=== PATIENT | female | born 1945 | race Caucasian/White ===

== ENCOUNTER → 2019-08-11 15:30 | Outpatient (CLI) | payer MEDICARE, SELFPAY ==
[2019-08-11 18:20] LABS: Thyroid Stimulating Hormone 1.49 uIU/mL (0.47-4.68)
== END ==
PROVIDERS: Family Provider Internal Medicine; PCP Internal Medicine; Visit Provider Hospitalist
DX: I48.91 Unspecified atrial fibrillation (principal)
CPT/HCPCS: 36415; 84443

== ENCOUNTER → 2019-08-31 15:49 | Outpatient (CLI) | payer MEDICARE, SELFPAY ==
--- NOTE | 2019-08-31 | DI.ECHO.S_ITS ---
[facility] +---------+ : : [address] : : : : [id number] : : : : Phone: [phone]+ Echocardiogram Report + + :Name: PARAG REYNOLDS Study Date: 08/31/2019 Height: 69 in : :[facility] Weight: 234 lb : : Gender: Female BSA: 2.2 m2 : :: 1945 Age: 74 yrs BP: 142/82 mmHg: :Reason For Study: Mitral Valve- Regurgitation : : Performed By: [facility] Staff : :Referring: HEIDI FELDMAN : + + Interpretation Summary The left ventricular ejection fraction is normal. There are no focal wall motion abnormalities. The right ventricle is normal in size and function. The left atrium is moderately dilated. There is moderate mitral regurgitation. There is moderate tricuspid regurgitation. The right ventricular systolic pressure is estimated to be at least 36 mmHg based on an estimated right atrial pressure of 3 mm Hg. There is no prior echocardiogram noted for this patient. Procedure: A two-dimensional transthoracic echocardiogram with color flow and Doppler was performed. The study quality was technically adequate. There is no prior echocardiogram noted for this patient. The patient was in atrial fibrillation with heart rates between 88-125 bpm during the exam. Left Ventricle: The left ventricle is normal in size. There is normal left ventricular wall thickness. The ejection fraction is estimated to be 50-55%. The left ventricular ejection fraction is normal. There are no focal wall motion abnormalities. Diastolic function could not be accurately assessed due to atrial fibrillation. Right Ventricle: The right ventricle is normal in size and function. Atria: The left atrium is moderately dilated. The right atrium is mildly dilated. There is no Doppler evidence for an interatrial shunt. Mitral Valve: The mitral valve is normal in structure and function. There is moderate mitral regurgitation. Aortic Valve: The aortic valve is trileaflet. The aortic valve opens well. There is trace aortic regurgitation. Tricuspid Valve: The tricuspid valve is normal in structure and function. There is moderate tricuspid regurgitation. The right ventricular systolic pressure is estimated to be at least 36 mmHg based on an estimated right atrial pressure of 3 mm Hg. Pulmonic Valve: The pulmonic valve is not well visualized. There is trace pulmonic regurgitation. Great Vessels: The aortic root is normal size. The ascending aorta could not be visualized. The pulmonary artery is normal size. The IVC is of normal diameter and collapses greater than 50% with a sniff. This suggests a low right atrial pressure of 3 mm Hg. Pericardium/ Pleura There is no pericardial effusion. There is no pleural effusion. MMode/2D Measurements & Calculations LVIDd: 4.2 cm LVOT diam: 2.0 cm LVIDs: 3.2 cm Ao root diam: 2.6 cm FS: 23.1 % EPSS: 0.73 cm IVSd: 1.1 cm LVPWd: 0.99 cm LV sorenson. diameter/BSA (cm/m^2): 1.9 LV sys. diameter/BSA (cm/m^2): 1.5 LA A2 area: 22.3 cm2 RA long axis: 5.5 cm LA A4 area: 23.9 cm2 RA area: 20.3 cm2 LA length (vol): 6.0 cm RA vol: 63.4 ml LA vol: 75.4 ml RA : 28.7 ml/m2 LA vol index: 34.2 ml/m2 TAPSE: 1.8 cm LVAd ap4: 26.2 cm2 LVAs ap4: 17.2 cm2 LVLs ap4: 6.7 cm Doppler Measurements & Calculations Ao V2 max: 111.8 cm/sec TR max amparo: 249.2 cm/sec Ao V2 mean: 80.3 cm/sec TR max P.2 mmHg Ao max P.0 mmHg Ao mean P.9 mmHg Ao V2 VTI: 21.2 cm Electronically signed by: Heidi Feldman M.D. on Reading Physician:09/02/2019 07:31 PM
== END ==
PROVIDERS: Family Provider Internal Medicine; PCP Internal Medicine; Visit Provider Hospitalist
DX: I08.1 Rheumatic disorders of both mitral and tricuspid valves (principal); I48.91 Unspecified atrial fibrillation
CPT/HCPCS: 93306

== ENCOUNTER → 2019-11-14 10:02 | Outpatient (CLI) | payer MEDICARE, SELFPAY ==
[2019-11-14 11:51] LABS: Blood Urea Nitrogen 16 mg/dL (7-17); Calcium 10.3 mg/dL (8.4-10.2); Carbon Dioxide 27 mmol/L (22-32); Chloride 99 mmol/L (98-107); Estimated Glomerular Filt Rate > 60.0 mL/min (>60); Glucose 131 mg/dL (80-110); HEMOLYSIS < 15 (0-50); Sodium 138 mmol/L (137-145)
[2019-11-14 11:52] LABS: Potassium 5.4 mmol/L (3.4-5.1)
== END ==
PROVIDERS: Family Provider Internal Medicine; PCP Internal Medicine; Referring Provider Hospitalist; Visit Provider Hospitalist
DX: I50.42 Chronic combined systolic (congestive) and diastolic (congestive) heart failure (principal)
CPT/HCPCS: 36415; 80048

== ENCOUNTER → 2020-03-11 11:05 | Outpatient (CLI) | payer MEDICARE, SELFPAY ==
--- NOTE | 2020-03-11 | DI.RAD.S_ITS ---
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 In the lateral projection, filming was performed of the patient swallowing. AP projection filming may also be performed with patient swallowing. COMPARISON: None. FINDINGS: Function: The oral preparatory phase appears normal, with proper containment. The subsequent oral propulsive phase, pharyngeal phase, and esophageal phase of swallowing also appear normal with all proffered substances. No laryngotracheal penetration or aspiration. No pathologic vallecular pooling. Normal passage of calibrated barium tablet Morphology: No cricopharyngeal bar is identified. No cervical esophageal webs. No Zenker's diverticulum. No strictures. IMPRESSION: No aspiration identified Dictated by: Jcarlos Lew M.D. on 03/11/2020 at 11:53 Approved by: Jcarlos Lew M.D. on 03/11/2020 at 11:53
--- NOTE | 2020-03-11 17:04 | ST.SWALLOW ---
Visit Care Team Role Provider Type Joce Wu MD Family Provider Non-Staff Primary Care Provider Specialty: Internal Medicine Address: [address] [facility], [place], [address] Email: Sissy Pool Attending Provider Non-Staff Referring Provider Specialty: Medical Address: [address] [place] [address], [address] Fax: Email: Modified Barium Swallow Study DIRECTOR OF [employer] Modified Barium Swallow Study Start: 03/11/20 14:13 Freq: Status: Active Protocol: Document 03/11/20 14:13 KELLEY (Rec: 03/11/20 14:26 KELLEY [id number]) Modified Barium Swallow Study Total Time Visit Start Time 11:30 Visit Stop Time 12:00 Total Visit Minutes 30 Referral Referring Physician Sissy Pool Reason for Referral Diaphragmatic hernia without obstruction Setting Setting Outpatient Care Patient Information Identification Type Name,ID Card Patient History The pt is a 74-yr-old female who was seen by this DIRECTOR OF [employer] in outpatient clinic for voice evaluation last week. The pt has been experiencing sticking sensation in throat and occasional coughing since Sep 2019 when she had surgery to remove her gall bladder. The pt was intubated for surgery and also has been having vocal hoarseness since then. She was also diagnosed with GERD at or about the same time, which was treated with medication for a 1-mo trial with little benefit and discontinued. The pt was also hospitalized in September at [facility] for congestive heart failure. The pt also reports difficulty with side effects of various medications, olfactory sensitivities (e.g., chemicals , perfumes), and sleep apnea with intolerance of CPAP. Subjective Observations The pt arrived on time and provided case history. She c/o increased SOB today and expressed plans to discuss with her retail department manager, whom she is scheduled to see in 3 days. Patient Positioning Position View Lat-A/P Imaging Lateral View Textures Administered Trials Presented Thin Liquid via Spoon,Thin Liquid via Cup,Honey Liquid via Spoon,Dysphagia Blenderized Textures,Regular Textures Oral Phase Source: MBSIMP (TM) (C) Bolus Specific Scoring Grid Lip Closure No Impairment (WNL) Tongue Control During Bolus Hold Minimal Impairment Bolus Transport/Lingual Motion WFL A/P Lingual Propulsion Delay No Oral Residue WFL Residue Clearing No Impairment (WNL) Nasal Regurgitation No Additional Oral Phase Observations Oral Peripheral Exam: Symmetrical features. Strength , coordination and ROM are WNL for pt's age. Pt wears full upper/lower dentures that fit well. Soft palate elevates upon phonation. Oral Phase: Occasional escape of bolus to lateral sulci with initial intake. Adequate recovery for bolus prep. A/P propulsion is timely and efficient. Possible that rapid a/p transit collects air with bolus, as observed in pharyngeal swallow phase. Mastication was occasionally mashing in nature but adequate for bolus preparation. No significant oral residue observed. Pharyngeal Phase Source: MBSIMP (TM) (C) Bolus Specific Scoring Grid Delayed Initiation of Pharyngeal Swallow Yes: To vallecula with NTL, Soft Palate Elevation No Impairment (WNL) Tongue Base Strength/Range of Motion Mild Impairment Residue Along the Tongue Base Yes: Trace, WFL Clearance of Residue Along Tongue Base No Impairment (WNL) Laryngeal Elevation No Impairment (WNL) Anterior Hyoid Movement Mild Impairment Epiglottic Range of Motion Mild Impairment Vallecular Residue Yes: Trace to mild Laryngeal Vestibular Closure WFL Pharyngeal Stripping Wave Mild Impairment Posterior Pharyngeal Wall Residue No Upper Esophageal Sphincter Opening WFL Clearance of Residue in the Pyriform WFL Sinuses Pharyngoesophageal Backflow Observed No Additional Pharyngeal Phase Observations No penetration or aspiration observed. Mildly reduced tongue base and pharyngeal constrictor strength results in incomplete lingopharyngeal seal. Hyolaryngeal elevation is WNL with reduced anterior excursion. Partial epiglottic inversion noted with liquid boluses, improved with increased bolus bulk of solids . Trace to mild pharyngeal residue was observed, primarily at vallecula, which cleared well with subsequent swallows and poses minimal aspiration risk. Pt swallowed air with most boluses, resulting in significant belching at end of study, which she reported as typical. A/P View Textures Administered Trials Presented [place] Liquid via Spoon, Dysphagia Blenderized Textures ,Barium Tablet A/P View Observations Pharyngeal Contraction No Impairment (WNL) Esophageal Function Slowed Clearing Additional Observations Barium tablet passed to stomach with water. Esophageal Observations Esophageal Function Slowed motility consistent with GERD diagnosis Clinical Impressions Dysphagia Type Mild Pharyngeal Dysphagia; Mild Aerophagia Findings The pt presents with mild pharyngeal dysphagia characterized by reduced laryngopharyngeal seal, anterior hyolaryngeal excursion, and inconsistent epiglottic inversion. The pt also presents with mild aerophagia possibly secondary to rapid oral transit of bolus , resulting in significant belching after intake. Occasional mild residue was observed that effectively clears with subsequent swallows and poses minimal risk of aspiration. Slow esophageal motility was observed; recommend pt continue with GI follow-up. Rehabilitation Potential Excellent Patient Appropriate for Therapy Yes: Incorporate with voice therapy Recommendations Diet Liquids Order Thin Diet Order Regular Medication Recommendation As Tolerated Additional Dietary Needs Controlled Sips Aspiration Precautions Recommended Precautions Upright at 90 Degrees,Small Bites/Sips Additional Precautions Eat/drink slowly and minimize distractions Treatment Plan Additional Therapy Recommendations Target oral motor control to reduce intake of excessive air Compensatory Strategies Recommendations Sitting Upright (90 deg) Short Term Goals 1. Pt will verbalize understanding of aerophagia education via MBS video review . 2. The pt will perform swallow strategies with min cues to reduce excessive intake of air during swallow. 3. The pt will perform exercises to increase strength , coordination and ROM of laryngeal and pharyngeal musculature to improve function and reduce risk of aspiration. Computer Application Developer Goals 1. The pt will perform swallow strategies independently to reduce excessive intake of air during swallow. 2. The pt will perform swallow exercises independently to improve function and reduce risk of aspiration. 3. The pt will report increased ease and comfort with oral intake and reduced belching after intake. 4. The pt will tolerate regular textures and thin liquids without overt s/sx of aspiration and with increased ease and confidence, as measured by pt report and clinical trials and judgment. Placement Recommendation After Discharge Home,Outpatient Therapy
== END ==
PROVIDERS: Family Provider Internal Medicine; PCP Internal Medicine; Referring Provider Physician Assistant Medical; Visit Provider Physician Assistant Medical
DX: K44.9 Diaphragmatic hernia without obstruction or gangrene (principal); R13.13 Dysphagia, pharyngeal phase
CPT/HCPCS: 74230; 92611

== ENCOUNTER → 2020-03-18 11:36 | Outpatient (CLI) | payer MEDICARE, SELFPAY ==
[2020-03-19 08:37] LABS: COVID19 Sendout Not Detected (Not Detect)
== END ==
PROVIDERS: Family Provider Internal Medicine; PCP Internal Medicine; Visit Provider Physician Assistant
DX: Z01.812 Encounter for preprocedural laboratory examination (principal)
CPT/HCPCS: 87635

== ENCOUNTER → 2020-03-21 10:49 | Outpatient (CLI) | payer MEDICARE, SELFPAY ==
--- NOTE | 2020-03-27 10:06 | P.PFT.S_ITS ---
Pulmonary Function Test Referral & Results Date Patient Seen: 03/21/20 Requesting provider: Sissy Pool Results: The spirometry demonstrates an FVC of 1.15 L which is 33% of predicted. The FEV1 was measured at 0.84 L which is 32% of predicted. The FEV1/FVC ratio was 73 which is 97% of predicted. Following the administration of bronchodilator there was a 20% improvement in FEV1 and a 130% improvement in FEF 25-75%. Lung volumes show an SVC of 1.61 L which is 49% of predicted. The diffusing capacity was measured at 12.83 which is 41% of predicted. No hemoglobin value was provided, so no correction for potential anemia could be made, if appropriate. The maximum voluntary ventilation was reduced Interpretation: This study demonstrates severe obstructive lung disease with evidence of si gnificant benefit following bronchodilator as above There is also evidenc of moderately severe restrictive lung disease based on reduction SVC There is also a significant reduction in diffusing capacity suggesting significant disease at the capillary alveolar level Clinical correlation suggested, but this is consistent with a diagnosis of moderately severe COPD
== END ==
PROVIDERS: Family Provider Internal Medicine; PCP Internal Medicine; Referring Provider Physician Assistant Medical; Visit Provider Physician Assistant Medical
DX: R06.02 Shortness of breath (principal); I48.91 Unspecified atrial fibrillation; J98.8 Other specified respiratory disorders
CPT/HCPCS: 94060; 94726; 94729

== ENCOUNTER → 2020-03-25 13:42 | Outpatient (CLI) | payer MEDICARE, SELFPAY ==
--- NOTE | 2020-03-25 14:11 | DI.ECHO.S_ITS ---
Echocardiogram Report + + :Name: PARAG REYNOLDS Study Date: 03/25/2020 Height: 69 in : :[facility] Weight: 207 lb : : Gender: Female BSA: 2.1 m2 : :: 1945 Age: 74 yrs BP: 110/65 mmHg: :Reason For Study: Atrial Fibrillation : :Ordering Physician: GASTON, : :HEIDI Performed By: Elizabeth Dang : :Referring: HEIDI FELDMAN : + + Interpretation Summary Left ventricular systolic function remains at the lower limits of normal with an estimated ejection fraction of around 55% without any focal wall motion abnormality. While left ventricular volumes remain normal, volumes are slightly larger compared to the previous study, now with an end-diastolic volume of 93 mL, up from 75 mL. Diastolic function could not be accurately assessed because of atrial fibrillation. The right ventricle appears normal in size with systolic function the lower limits of normal and appears slightly less dynamic compared to the previous study. Right ventricular systolic pressure is now estimated at 50 mmHg with an estimated CVP of 15 mmHg, both higher compared to the previous exam. There is severe left atrial enlargement that is progressive since the previous study. There is borderline right atrial enlargement that is unchanged. The mitral valve apparatus is mildly calcified with a large, eccentric jet of mitral regurgitation now with a PISA of 1 cm and systolic flow reversal in the pulmonary veins, consistent with severe mitral regurgitation, likely progressive since the previous study. There is moderate tricuspid regurgitation that appears unchanged. There is a moderate size left pleural effusion noted that is new since the previous study. The patient was in atrial fibrillation at 70 to 85 bpm which is slower compared to the previous exam. Procedure: A two-dimensional transthoracic echocardiogram with color flow and Doppler was performed. The study quality was technically adequate. Comparison is made with the echocardiogram of 08/31/2019. The patient was in atrial fibrillation with heart rates between 70-85 bpm during the exam. This is slower compared to the previous study. Left Ventricle: The left ventricle is borderline dilated. The estimated left ventricular end diastolic volume is 93 mL compared to 75 ml. There is normal left ventricular wall thickness. Left ventricular systolic function is low normal. The ejection fraction is estimated to be 55-60%. There are no focal wall motion abnormalities. This is unchanged compared to the previous study. Diastolic function could not be accurately assessed due to atrial fibrillation. Right Ventricle: The right ventricle is normal size. Right ventricular systolic function is at the lower limits of normal. This is slightly less dynamic compared to the previous study. Atria: The left atrium is severely dilated. The left atrium has significantly increased in size since the prior echo exam. The right atrium is borderline dilated. This is unchanged compared to the previous study. There is no Doppler evidence for an interatrial shunt. Mitral Valve: The mitral valve leaflets are slightly calcified. There is mild calcification extending into the subvalvular apparatus. There is severe mitral regurgitation. Flow reversal noted in pulmonary veins consistent with significant mitral regurgitation. This is likely progressive compared to the previous study. Aortic Valve: The aortic valve is trileaflet. The aortic valve opens well. There is no aortic valve stenosis. There is trace aortic regurgitation. Tricuspid Valve: The tricuspid valve leaflets are thin and pliable. There is moderate tricuspid regurgitation. This is unchanged compared to the previous study. The right ventricular systolic pressure is estimated to be at least 50 mmHg based on an estimated right atrial pressure of 15 mm Hg. This is higher compared to the previous study. Pulmonic Valve: The pulmonic valve is normal in structure and function. There is trace pulmonic regurgitation. Great Vessels: The aortic root is normal size. The dimensions of the ascending aorta are normal. The IVC is dilated (diameter is greater than 2.1 cm) and it collapses less than 50% with a sniff. This suggests a high right atrial pressure of 15 mm Hg. Pericardium/ Pleura There is no pericardial effusion. There is a moderate left-sided pleural effusion. This is new compared to the previous study. MMode/2D Measurements & Calculations LVIDd: 5.2 cm LVOT diam: 1.8 cm LVIDs: 3.3 cm Ao root diam: 2.6 cm FS: 36.9 % asc Aorta Diam: 3.0 cm EPSS: 0.31 cm IVSd: 0.69 cm LVPWd: 0.90 cm LV sorenson. diameter/BSA (cm/m^2): 2.5 LV sys. diameter/BSA (cm/m^2): 1.6 LA A2 area: 30.6 cm2 RA long axis: 5.5 cm LA A4 area: 27.6 cm2 RA area: 19.7 cm2 LA length (vol): 6.1 cm RA vol: 60.0 ml LA vol: 118.3 ml RA : 28.6 ml/m2 LA vol index: 56.4 ml/m2 IVC diam: 2.1 cm RVD1 (basal): 3.4 cm TAPSE: 1.8 cm Doppler Measurements & Calculations Ao V2 max: 103.3 cm/sec LVOT Max Dom: 63.0 cm/sec Ao V2 mean: 71.3 cm/sec LV V1 max P.6 mmHg Ao max P.3 mmHg LV V1 VTI: 11.3 cm Ao mean P.3 mmHg NEIDA(I,D): 1.5 cm2 Ao V2 VTI: 18.5 cm NEIDA(V,D): 1.5 cm2 sev ratio: 0.61 NEIDA indexed to BSA (cm^2/m^2): 0.74 MV E max dom: 148.8 cm/sec TR max dom: 294.8 cm/sec MV dec time: 0.18 sec TR max P.8 mmHg MVA(VTI): 0.77 cm2 PA V2 max: 61.4 cm/sec MR ERO: 0.46 cm2 PA V2 mean: 39.6 cm/sec PA mean P.73 mmHg PA pr(Accel): 32.8 mmHg MV V2 mean: 73.8 cm/sec MR PISA: 6.1 cm2 MV mean P.4 mmHg MR flow rate: 223.7 cm3/sec MV V2 VTI: 36.8 cm MR PISA radius: 0.98 cm SV(LVOT): 28.5 ml Reading Physician:AM
== END ==
PROVIDERS: Family Provider Internal Medicine; PCP Internal Medicine; Referring Provider Hospitalist; Visit Provider Hospitalist
DX: I08.1 Rheumatic disorders of both mitral and tricuspid valves (principal); I48.21 Permanent atrial fibrillation; I50.42 Chronic combined systolic (congestive) and diastolic (congestive) heart failure; I27.20 Pulmonary hypertension, unspecified
CPT/HCPCS: 93306

== ENCOUNTER 2020-04-17 10:30 | Outpatient (RCR) | payer MEDICARE, SELFPAY ==
--- NOTE | 2020-03-07 10:38 | ST.OPIE ---
Visit Care Team Role Provider Type Joce Wu MD Family Provider Non-Staff Primary Care Provider Specialty: Internal Medicine Address: [address] [place], [address] Email: José Miguel Lamar MD Attending Provider Physician Referring Provider Specialty: Ear, Nose, Throat Address: [address] [place] [address], [id number] Email: [email or web address] Speech-Language Pathology Initial Evaluation [employer] Voice Resonance Evaluation Start: 03/04/20 10:23 Freq: Status: Active Protocol: Document 03/04/20 10:24 KELLEY (Rec: 03/04/20 11:49 KELLEY [id number]) Voice and Resonance Assessment Session Time Visit Start Time 10:30 Visit Stop Time 11:20 Total Visit Minutes 50 Visit Information Visit Number Initial Evaluation Plan of Care Dates 03/04/20 - 05/30/20 Insurance Information Medicare Next Note Type Next Note Type Treatment Note Referral Referring Physician Dr. José Miguel Lamar Reason for Referral Hoarseness Setting Setting Outpatient Care Patient History General Information The pt is a 74-yr-old female with increased hoarseness since Aug 2019 following surgery to remove her gall bladder. Pt was intubated for surgery. She was then hospitalized in Sep 2019 at [facility] with congestive heart failure and diagnosed with mild GERD. She received little benefit from Omeprazol, which was disconitinued per MD recommendation after a one- month trial. She is scheduled to see manager local 03/14. Chest x-ray was performed last week but the pt has not yet received results. The pt also c/o frequent coughing with swallowing. She is scheduled with this clinician for Modified Barium Swallow Study next week . She experiences seasonal allergies, frequent throat clearing, and occasional coughing related to dysphagia symptoms. The pt also reports difficulty with side effects of various medications, olfactory sensitivities (e.g., chemicals , perfumes), and sleep apnea with intolerance of CPAP. Hearing Hearing Level Impaired Auditory History Mild impairment typical of age . Does not wear hearing aids. Vision Vision Status Impaired Comments Wears prescription glasses [place] Langauge Language(s) Spoken in the Home Bengali Educational Status Education Level 1 semester college Occupational Status Occupation Status Retired Previous Therapy Previous Speech-Language Therapy No Subjective Subjective The pt arrived on time unaccompanied. She provided case history. She expressed skepticism at improvement with voice therapy, as she attributes hoarseness to medication side effects. She was agreeable to evaluation and receptive to education RE Speech Pathology services. - Laryngeal Performance Voice Handicap Index Function Subtotal 12 Physical Subtotal 0 Emotional Subtotal 0 Total Score 12 Severity Mild (0-30) VHI Comments Many scores reflect interaction w/ who is [place] Overall Severity 54% (Moderate) Roughness 36% in conversation (moderate) ; 75 in sustained phonation ( mod-severe) Breathiness WNL Strain 26% in conversation (mild-mod) ; 58% in sustained phonation ( moderate) Pitch 5% (minimal, reduced pitch) Loudness 21% (mild, reduced) Normal Resonance? Yes Maximum Phonation Time MPT Norms: Women (15-25) Men (25-35) Loudness (50-60 dB); Speaking Rate: Oral Reading of Sentences (190 Words Per Minute); Oral Reading of Paragraphs (160-170 WPM); Speaking Rate in Conversation (150-250 WPM) Maximum Phonation Time 16.44 sec with increased loudness Maximum Phonation Time Adequate for Speech Maximum Phonation Time Comments Significantly improved vocal quality with increased loudness Jitter/Shimmer Norms: Jitter (Less than or equal to 1.040% - Frequency) Norms: Shimmer (Less than or equal to 3.810% - Amplitude) Jitter 0.877% WFL, inconsistent ( range = 0.63 - 1.23%) Shimmer 3.523% WFL, inconsistent ( range = 2.98 - 4.10%) Voice Pitch Range Norms: Women (100-300 Hz) Men (70-250 Hz) Fundamental Frequency Norms: Women (Mean: 225 Hz; Range: 155-334 Hz) Men ( Mean: 128 Hz; Range: 85-196 Hz) Paradoxical Vocal Fold Movement No Indications Resonance Nasal Resonance Normal Therapeutic Techniques Therapy Tactics Increase Loudness Findings Findings Moderate Impairment Observations Frequent throat clearing observed throughout the evaluation. 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 May be result of frequent throat clearing and coughing, as related to seasonal allergies and dysphagia. The pt also presents with complaints of dysphagia, which will be instrumentally evaluated 03/11 via MBSS. Prognosis Rehabilitation Potential Good - Recommendations Treatment Recommended Yes Treatment Frequency/Duration 1x/wk for 6 wks Placement Recommendation Home,Outpatient Therapy Therapy Recommendations GERD/LPR education Training of exercises to improve VF adduction Training of alternative coughing/throat clearing techniques Dysphagia treatment as determined by MBSS Short Term Goals 1. The pt will participate in MBSS for assessment of swallow function and safety and to guide POC. 2. The pt will demonstrate understanding of GERD/LPR symptoms and precautions via verbal description. 3. The pt will perform exercises to increase VF adduction with min v/v cues to improve vocal quality. 4. The pt will perform alternative coughing techniques to reduce trauma to VFs and improve vocal quality . Longterm Goals 1. The pt will perform swallow exercises independently with consistent use of HEP to improve vocal quality. 2. The pt will perform alternative coughing/throat clearing techniques independently to reduce impact on VFs and improve vocal quality. 3. The pt will exhibit vocal quality WNL for age, as measured by pt and clinician perceptual ratings and instrumental measurements (e.g ., s/z ratio, shimmer, jitter, etc.). Patient/Caregiver Education Patient/Family Education Described results of evaluation,Patient Understanding,Patient Needs More Info Vocally Abusive Behavior Behavior Rating Arguing (peers/siblings/other) Never Athletic Activity Yelling Never Mouth Breathing Occasionally Calling from Distance Occasionally Cheerleading Participation Never Coughing/Sneezing Loudly Occasionally Crying Infrequently Use of Dairy Products Occasionally Environmental Irritant Exposure Infrequently Use of Inhalants Never Laughing Hard/Abusively Infrequently Singing Abusively Never Participation In Plays Never Smoking Never Excessive Talking Never Making Animal /Toy Noises Never Yelling/Screaming Never
--- NOTE | 2020-03-11 17:20 | ST.OPPOC ---
Physical, Occupational & Speech Therapy At [facility] Visit Care Team Role Provider Type Joce Wu MD Family Provider Non-Staff Primary Care Provider Address: [address] [place], [address] José Miguel Lamar MD Attending Provider Physician Referring Provider Address: [address] [place] [address], [id number] Speech Pathology Plan of Care General Information The pt is a 74-yr-old female with increased hoarseness since Aug 2019 following surgery to remove her gall bladder. Pt was intubated for surgery. She was then hospitalized in Sep [address] [facility] with congestive heart failure and diagnosed with mild GERD. She received little benefit from Omeprazol, which was disconitinued per MD recommendation after a one-month trial. She is scheduled to see livestock handler 03/14. Chest x-ray was performed last week but the pt has not yet received results. The pt also c/o frequent coughing with swallowing. Modified Barium Swallow Study was completed 03/11/20 with findings of mild pharyngeal dysphagia and mild aerophagia. She experiences seasonal allergies, frequent throat clearing, and occasional coughing related to dysphagia symptoms. The pt also reports difficulty with side effects of various medications, olfactory sensitivities (e.g., chemicals, perfumes), and sleep apnea with intolerance of CPAP. Plan of Care Dates 03/04/20 - 05/30/20 Patient Comments The pt was seen in Radiology for MBSS with findings of mild pharyngeal dysphagia and mild aerophagia. POC is updated to include dysphagia therapy. Chief Complaint(s) Swallowing,Voice Short Term Goals Dysphonia: 1. The pt will participate in MBSS for assessment of swallow function and safety and to guide POC. 2. The pt will demonstrate understanding of GERD /LPR symptoms and precautions via verbal description. 3. The pt will perform exercises to increase VF adduction with min v/v cues to improve vocal quality. 4. The pt will perform alternative coughing techniques to reduce trauma to VFs and improve vocal quality. Dysphagia: 1. Pt will verbalize understanding of aerophagia education via MBS video review. 2. The pt will perform swallow strategies with min cues to reduce excessive intake of air during swallow. 3. The pt will perform exercises to increase strength, coordination and ROM of laryngeal and pharyngeal musculature to improve function and reduce risk of aspiration. Location Manager Goals Dysphonia: 1. The pt will perform swallow exercises independently with consistent use of HEP to improve vocal quality. 2. The pt will perform alternative coughing/ throat clearing techniques independently to reduce impact on VFs and improve vocal quality. 3. The pt will exhibit vocal quality WNL for age , as measured by pt and clinician perceptual ratings and instrumental measurements (e.g., s/z ratio, shimmer, jitter, etc.). Dysphagia: 1. The pt will perform swallow strategies independently to reduce excessive intake of air during swallow. 2. The pt will perform swallow exercises independently to improve function and reduce risk of aspiration. 3. The pt will report increased ease and comfort with oral intake and reduced belching after intake. 4. The pt will tolerate regular textures and thin liquids without overt s/sx of aspiration and with increased ease and confidence, as measured by pt report and clinical trials and judgment. Rehabilitation Potential Good Impairments Identified Dysphagia,Dysphonia,Vocal Quality,Vocal Hygiene Length of Therapy Recommended 2-3 Months Treatment Frequency Once a Week Treatment Duration 45 Minutes Therapeutic Contents Client Education,Home Exercise Program, Swallowing/Feeding,Voice Training Patient Recommendations Continue with Current Pro Comment Add dysphagia treatment to POC Electronically Signed by: RIANA To 03/11/20 [id number] Please Sign and Return: I have reviewed this Plan of Care and certify that the skilled therapy services above are required to meet the patient?s needs. Physician Signature Date Printed Name and Credentials Clinical Instructor Signature Printed Name and Credentials
--- NOTE | 2020-04-03 13:54 | ST.OPTN ---
Visit Care Team Role Provider Type Joce Wu MD Family Provider Non-Staff Primary Care Provider Address: [address] [place] [address], [id number] José Miguel Lamar MD Attending Provider Physician Referring Provider Address: [address] [place] [address], [id number] INSTRUMENTATION DESIGNER Treatment Note INSTRUMENTATION DESIGNER Treatment Note Start: 03/04/20 10:23 Freq: Status: Active Protocol: Document 04/03/20 13:45 KELLEY (Rec: 04/03/20 13:54 KELLEY [email or web address]) Speech Pathology Treatment Note Session Time Visit Start Time 10:30 Visit Stop Time 11:20 Total Visit Minutes 50 Visit Information Visit Number [id number] Plan of Care Dates 03/04/20 - 05/30/20 Insurance Information Medicare Setting Treatment Setting Outpatient Care Visit Type Note Type Treatment Note Next Note Type Next Note Type Treatment Note General Information General Information The pt is a 74-yr-old female with increased hoarseness since Aug 2019 following surgery to remove her gall bladder. Pt was intubated for surgery. She was then hospitalized in Sep 2019 at [facility] with congestive heart failure and diagnosed with mild GERD. She received little benefit from Omeprazol, which was disconitinued per MD recommendation after a one- month trial. She is scheduled to see product management consultant 03/14. Chest x-ray was performed last week but the pt has not yet received results. The pt also c/o frequent coughing with swallowing. Modified Barium Swallow Study was completed 03/11/20 with findings of mild pharyngeal dysphagia and mild aerophagia. She experiences seasonal allergies, frequent throat clearing, and occasional coughing related to dysphagia symptoms. The pt also reports difficulty with side effects of various medications, olfactory sensitivities (e.g., chemicals , perfumes), and sleep apnea with intolerance of CPAP. Subjective Observations/Patient Presentation The pt arrived a few minutes late d/t entering at incorrect entrance. She c/o difficulty getting a copy of her Pulmonary Function Test report , which this clincian had access to. Clinician called Medical Records dept and the pt was able to request report, which will be mailed to her home. Pulmonary Function Test findings were consistent with moderately-severe COPD. The pt was referred to her PCP for discussion and details of the report. Chief Complaint(s) Swallowing,Voice Additional Areas of Concern Side effects of medication; GERD Rehab Expectation/Goals: Patient Goals Improve voice and swallow Patient Knowledge/Awareness of INSTRUMENTATION DESIGNER Role Good in Treatment Objective Short Term Goals Dysphonia: 1. The pt will participate in MBSS for assessment of swallow function and safety and to guide POC. 2. The pt will demonstrate understanding of GERD/LPR symptoms and precautions via verbal description. 3. The pt will perform exercises to increase VF adduction with min v/v cues to improve vocal quality. 4. The pt will perform alternative coughing techniques to reduce trauma to VFs and improve vocal quality . Dysphagia: 1. Pt will verbalize understanding of aerophagia education via MBS video review . 2. The pt will perform swallow strategies with min cues to reduce excessive intake of air during swallow. 3. The pt will perform exercises to increase strength , coordination and ROM of laryngeal and pharyngeal musculature to improve function and reduce risk of aspiration. Internal Control Specialist Goals Dysphonia: 1. The pt will perform swallow exercises independently with consistent use of HEP to improve vocal quality. 2. The pt will perform alternative coughing/throat clearing techniques independently to reduce impact on VFs and improve vocal quality. 3. The pt will exhibit vocal quality WNL for age, as measured by pt and clinician perceptual ratings and instrumental measurements (e.g ., s/z ratio, shimmer, jitter, etc.). Dysphagia: 1. The pt will perform swallow strategies independently to reduce excessive intake of air during swallow. 2. The pt will perform swallow exercises independently to improve function and reduce risk of aspiration. 3. The pt will report increased ease and comfort with oral intake and reduced belching after intake. 4. The pt will tolerate regular textures and thin liquids without overt s/sx of aspiration and with increased ease and confidence, as measured by pt report and clinical trials and judgment. Treatment Activities Swallow: Reviewed swallow exercises, Instructions were clarified and all questions were answered. Pt demonstrated understanding with performance of exercises. Voice: Initiated training in easy-onset cough, vocal adduction exercises via staccato vowel production at a variety of pitches, and diaphragmatic breathing. The pt reported difficulty breathing when she is not sitting fully upright. Skilled education was provided RE diaphragm and respiratory function. Pt returned demonstration of all techniques trained today. instructions were provided orally with demonstration and in writing. Pt verbalized understanding of written HEP task instructions. Assessment Patient Response to Treatment Good Rehab Potential Good Impairments Identified Dysphagia,Dysphonia,Vocal Quality,Vocal Hygiene Assessment of Improvement The pt demonstrated good understanding of education and was able to perform exercises and techniques following instructions with minimal cuing. Voice continues to be intermittently rough, particularly at lower pitches. Occasional glottal david may be present and contributing to reduced perceptual quality. Reviewed with Patient Goals,Progress Being Made,Home Exercise Program Patient/Caregiver Understanding Good Plan Amount of Therapy Recommended 2-3 Months Frequency of Treatment Once a Week Length of Session 45 Minutes Treatment Emphasis Next Session Education RE glottal david. Expand swallow exercises. Therapeutic Contents Client Education,Home Exercise Program,Swallowing/Feeding, Voice Training Provided Patient/Caregiver Instruction Home Exercise Program,Plan of Care,Questions/Concerns Therapy Recommendations Continue with Current Program Comment Add dysphagia treatment to POC
--- NOTE | 2020-04-17 11:30 | ST.OPDS ---
Visit Care Team Role Provider Type Joce Wu MD Family Provider Non-Staff Primary Care Provider Address: [address] [facility], [place], [address] José Miguel Lamar MD Attending Provider Physician Referring Provider Address: [address] [place] [address], [id number] PARTY PLAN DEALER Treatment Note PARTY PLAN DEALER Treatment Note Start: 03/04/20 10:23 Freq: Status: Active Protocol: Document 04/17/20 10:31 KELLEY (Rec: 04/17/20 11:06 KELLEY [email or web address]) Speech Pathology Treatment Note Session Time Visit Start Time 10:30 Visit Stop Time 11:20 Total Visit Minutes 50 Visit Information Visit Number 11/27 Plan of Care Dates 03/04/20 - 05/30/20 Insurance Information Medicare Setting Treatment Setting Outpatient Care Visit Type Note Type Discharge Summary General Information General Information The pt is a 74-yr-old female with increased hoarseness since Aug 2019 following surgery to remove her gall bladder. Pt was intubated for surgery. She was then hospitalized in Sep 2019 at [facility] with congestive heart failure and diagnosed with mild GERD. She received little benefit from Omeprazol, which was disconitinued per MD recommendation after a one- month trial. She is scheduled to see claims processor 03/14. Chest x-ray was performed last week but the pt has not yet received results. The pt also c/o frequent coughing with swallowing. Modified Barium Swallow Study was completed 03/11/20 with findings of mild pharyngeal dysphagia and mild aerophagia. She experiences seasonal allergies, frequent throat clearing, and occasional coughing related to dysphagia symptoms. The pt also reports difficulty with side effects of various medications, olfactory sensitivities (e.g., chemicals , perfumes), and sleep apnea with intolerance of CPAP. Subjective Observations/Patient Presentation Pt reported inconsistent practice with home exercises d /t busy schedule with medical appts and home maintenance issues. She reported having seen refuse laborer on Wednesday, who recommended sotalol and cardioversion. She also reported that the Creel Operator suspects asthma; pt is awaiting inhaler. She reported improvement in dysphagia symptoms. Her greatest concern is feeling full after limited intake. She denied coughing or concern of choking with oral intake. She continues to attribute hoarse voice to side effects of medication, which is a possibility. Chief Complaint(s) Swallowing,Voice Additional Areas of Concern Side effects of medication; GERD Rehab Expectation/Goals: Patient Goals Improve voice and swallow Patient Knowledge/Awareness of PARTY PLAN DEALER Role Good in Treatment Objective Short Term Goals Dysphonia: 1. The pt will participate in MBSS for assessment of swallow function and safety and to guide POC. GOAL MET 2. The pt will demonstrate understanding of GERD/LPR symptoms and precautions via verbal description. GOAL MET 3. The pt will perform exercises to increase VF adduction with min v/v cues to improve vocal quality. PT DEMONSTRATES COMPETENCE WITH EXERCISES; NEEDS TO IMPROVE CONSISTENCY OF PRACTICE. 4. The pt will perform alternative coughing techniques to reduce trauma to VFs and improve vocal quality . GOOD UNDERSTANDING AND ABILITY TO PERFORM; NEEDS PRACTICE TO HABITUALIZE Dysphagia: 1. Pt will verbalize understanding of aerophagia education via MBS video review . GOAL MET 2. The pt will perform swallow strategies with min cues to reduce excessive intake of air during swallow. PROGRESS MADE 3. The pt will perform exercises to increase strength , coordination and ROM of laryngeal and pharyngeal musculature to improve function and reduce risk of aspiration. PT DEMONSTRATES COMPETENCE WITH EXERCISES; NEEDS TO IMPROVE CONSISTENCY OF PRACTICE. Quality Assurance Supervisor Final Goals Dysphonia: 1. The pt will perform swallow exercises independently with consistent use of HEP to improve vocal quality. GOAL NOT MET; PROGRESS MADE 2. The pt will perform alternative coughing/throat clearing techniques independently to reduce impact on VFs and improve vocal quality. GOAL NOT MET; PROGRESS MADE 3. The pt will exhibit vocal quality WNL for age, as measured by pt and clinician perceptual ratings and instrumental measurements (e.g ., s/z ratio, shimmer, jitter, etc.). GOAL NOT MET Dysphagia: 1. The pt will perform swallow strategies independently to reduce excessive intake of air during swallow. GOAL NOT MET; PROGRESS MADE 2. The pt will perform swallow exercises independently to improve function and reduce risk of aspiration. PT DEMONSTRATES COMPETENCE WITH EXERCISES; NEEDS TO IMPROVE CONSISTENCY OF PRACTICE. 3. The pt will report increased ease and comfort with oral intake and reduced belching after intake. GOAL MET 4. The pt will tolerate regular textures and thin liquids without overt s/sx of aspiration and with increased ease and confidence, as measured by pt report and clinical trials and judgment. GOAL MET Treatment Activities Swallow: Reviewed swallow exercises, Instructions were clarified and all questions were answered. Pt demonstrated understanding with performance of exercises. Pt tolerated trials of thin liquid in single and consecutive sips without overt s/sx of aspiration. Voice: Reviewed alternative cough techniques to ease impact on VFs. Pt self- monitored during session, independently noticing and correcting a hard throat clear . She performed hard swallow technique x2 followed by intake of water and cough symptoms subsided. Education provided RE presbyphonia, including common symtoms of reduced VF bulk, bowing, and/ or glottic gap contributing to changes in vocal quality. The pt verbalized understanding. Pt asked if PARTY PLAN DEALER recommended a particular mouth wash to aid vocal quality. Recommendation was made to avoid mint and menthol products d/t potential impacts on GERD/LPR symptoms. Discussed progress to date and POC. The pt expressed feeling confident with HEP. PARTY PLAN DEALER emphasized importance of regular practice for positive results. She verbalized understanding and requested DC from skilled intervention d/t extrordinary number of other medical appointments and travel distance from [facility]. Assessment Patient Response to Treatment Good Rehab Potential Good Impairments Identified Dysphagia,Dysphonia,Vocal Quality,Vocal Hygiene Progress Towards Goals Good Progress,Appropriate for Discharge Assessment of Overall Progress Improving Assessment of Improvement The pt demonstrated good understanding of education and was able to perform exercises and techniques following instructions with minimal cuing. Voice continues to be intermittently rough, particularly at lower pitches. Etiology is unclear but likely contributed by age, frequent coughing and throat clearing, and possible side effects of medication. Pt reports improved swallow function with primary concern related to feeling full quickly. She consumed thin liquid in single and consecutive sips without overt s/sx of aspiration during today's session. While not all goals have been met, PARTY PLAN DEALER is in agreement with discharge from therapy d/t the pt's busy medical schedule and travel distance, as well as the pt's understanding of therapeutic exercises and techniques. Reviewed with Patient Goals,Progress Being Made,Home Exercise Program Patient/Caregiver Understanding Good Plan Therapeutic Contents Client Education,Home Exercise Program,Swallowing/Feeding, Voice Training Provided Patient/Caregiver Instruction Home Exercise Program,Plan of Care,Questions/Concerns Therapy Recommendations Discharge to Home Exercise Program
== END 2020-04-17 15:43 | disposition home or self-care (01) ==
LOC: SP 10:30
PROVIDERS: Family Provider Internal Medicine; PCP Internal Medicine; Referring Provider Otolaryngology; Visit Provider Otolaryngology
DX: R49.0 Dysphonia (principal)
CPT/HCPCS: 92507; 92520; 92524; 92526

== ENCOUNTER → 2020-06-05 15:02 | Outpatient (CLI) | payer MEDICARE, SELFPAY ==
[2020-06-05 16:22] LABS: BUN Creatinine Ratio 36.7 (6-22); Blood Urea Nitrogen 33 mg/dL (7-17); Calcium 9.4 mg/dL (8.4-10.2); Carbon Dioxide 35 mmol/L (22-32); Chloride 96 mmol/L (98-107); Estimated Glomerular Filt Rate > 60.0 mL/min (>60); Glucose 97 mg/dL (80-110); HEMOLYSIS < 15 (0-50); Potassium 4.5 mmol/L (3.4-5.1); Sodium 138 mmol/L (137-145)
== END ==
PROVIDERS: Family Provider Internal Medicine; PCP Internal Medicine; Referring Provider Hospitalist; Visit Provider Hospitalist
DX: I10 Essential (primary) hypertension (principal)
CPT/HCPCS: 36415; 80048

== ENCOUNTER → 2021-05-12 10:11 | Outpatient (CLI) | payer MEDICARE, SELFPAY ==
--- NOTE | 2021-05-12 | DI.ECHO.S_ITS ---
[facility]---------+ [facility] +---------+ : : [address] : [address] : : : : [id number] : : : : Phone: [phone] +---------+ Echocardiogram Report + + :Name: PARAG REYNOLDS Study Date: 05/12/2021 Height: 69 in : :[facility] : Weight: 240 lb : : Gender: Female BSA: 2.2 m2 : :: 1945 Age: 75 yrs BP: 143/96 mmHg: :Reason For Study: Mitral Valve- Regurgitation : :Ordering Physician: Gita : :Emily Hooks Performed By: Marcelo Baldwin : :Referring: GITA HOOKS : + + Interpretation Summary The left ventricle is normal in size and wall thickness. The ejection fraction is estimated to be 55-60%. The right ventricle is normal in size and function. There is moderate mitral regurgitation. Compared to the prior echo study, there has been no change in the severity of mitral regurgitation. There is moderate tricuspid regurgitation. Compared to the prior echo exam, there has been no change in TR severity. The right ventricular systolic pressure is estimated to be at least 32 mmHg based on an estimated right atrial pressure of 3 mm Hg. Compared to the prior echo exam, there has been a decrease in the severity of pulmonary hypertension. Mild atherosclerotic plaque(s) in the aortic arch. Procedure: A two-dimensional transthoracic echocardiogram with color flow and Doppler was performed. The study quality was technically adequate. Comparison is made with the echocardiogram of 04/15/2020. The patient was in atrial fibrillation with controlled ventricular rate during the exam. Left Ventricle: The left ventricle is normal in size and wall thickness. There is no thrombus. The ejection fraction is estimated to be 55-60%. There are no focal wall motion abnormalities. Diastolic function could not be accurately assessed due to atrial fibrillation. Right Ventricle: The right ventricle is normal in size and function. Atria: The left atrium is severely dilated. The left atrium has remained unchanged in size since the prior echo exam. The right atrium is mildly dilated. There is no Doppler evidence for an interatrial shunt. Mitral Valve: The mitral valve leaflets are slightly calcified. The mitral valve chordae are thickened and/or calcified. There is moderate mitral regurgitation. The mitral regurgitant jet is eccentrically directed. Compared to the prior echo study, there has been no change in the severity of mitral regurgitation. Aortic Valve: The aortic valve is normal in structure and function. The aortic valve is trileaflet. There is no aortic valve stenosis. No aortic regurgitation is present. Tricuspid Valve: The tricuspid valve is normal. There is moderate tricuspid regurgitation. The right ventricular systolic pressure is estimated to be at least 32 mmHg based on an estimated right atrial pressure of 3 mm Hg. Compared to the prior echo exam, there has been no change in TR severity. Compared to the prior echo exam, there has been a decrease in the severity of pulmonary hypertension. Pulmonic Valve: The pulmonic valve is not well seen, but is grossly normal. There is no pulmonic valvular regurgitation. Great Vessels: The aortic root is normal size. There is aortic root sclerosis/calcification. The dimensions of the ascending aorta are normal. The aortic arch could not be visualized. Mild atherosclerotic plaque(s) in the aortic arch. The IVC is of normal diameter and collapses greater than 50% with a sniff. This suggests a low right atrial pressure of 3 mm Hg. Pericardium/ Pleura There is no pericardial effusion. There is no pleural effusion. MMode/2D Measurements & Calculations LVIDd: 4.9 cm LVOT diam: 1.9 cm LVIDs: 3.5 cm Ao root diam: 2.6 cm FS: 28.6 % asc Aorta Diam: 2.7 cm IVSd: 0.80 cm LVPWd: 1.0 cm LV sorenson. diameter/BSA (cm/m^2): 2.2 LV sys. diameter/BSA (cm/m^2): 1.6 LA dimension: 3.9 cm RA long axis: 6.7 cm LA A2 area: 33.6 cm2 IVC diam: 1.6 cm LA A4 area: 29.7 cm2 LA length (vol): 7.1 cm LA vol: 118.8 ml LA vol index: 53.2 ml/m2 TAPSE_phl: 1.9 cm Doppler Measurements & Calculations Ao V2 max: 109.0 cm/sec LVOT Max Dom: 71.1 cm/sec Ao V2 mean: 86.9 cm/sec LV V1 max P.0 mmHg Ao max P.0 mmHg LV V1 VTI: 15.5 cm Ao mean P.0 mmHg NEIDA(I,D): 1.7 cm2 Ao V2 VTI: 25.6 cm NEIDA(V,D): 1.8 cm2 sev ratio: 0.61 NEIDA indexed to BSA (cm^2/m^2): 0.77 TR max dom: 267.0 cm/sec SV(LVOT): 43.9 ml TR max P.5 mmHg PA V2 max: 86.1 cm/sec PA V2 mean: 59.9 cm/sec PA mean P.0 mmHg PA pr(Accel): 38.5 mmHg AV VR_phl: 0.65 NEIDA(VTI)/BSA_phl: 0.77 Reading Physician:03:04 PM
== END ==
PROVIDERS: Family Provider Internal Medicine; PCP Internal Medicine; Referring Provider Internal Medicine Cardiovascular Disease; Visit Provider Internal Medicine Cardiovascular Disease
DX: I08.1 Rheumatic disorders of both mitral and tricuspid valves (principal); I70.0 Atherosclerosis of aorta
CPT/HCPCS: 93306

== ENCOUNTER → 2022-06-10 15:05 | Outpatient (CLI) | payer MEDICARE, SELFPAY ==
--- NOTE | 2022-06-10 15:07 | DI.ECHO.S_ITS ---
[facility]---------+ [facility] +---------+ : : [address] : [address] : : : : [id number] : : : : Phone: [phone] +[phone]+ Echocardiogram Report + + :Name: PARAG REYNOLDS Study Date: 06/10/2022 Height: 69.5 in: :[facility] ReadingLocation: Weight: 244 lb : : Gender: Female BSA: 2.3 m2 : :: 1945 Age: 76 yrs BP: 122/88 mmHg: :Reason For Study: MITRAL INSUFFICIENCY : :Ordering Physician: RON, : :GISELL Performed By: Elizabeth Dang : :Referring: GISELL VELASQUEZ : + + Interpretation Summary Afib with controlled rate. Normal LV size and mild concentric LVH; normal wall motion and LV systolic function. EF is 55-60%. Severe biatrial enlargement. Moderate eccentric posterolaterally directed MR. Otherwise no significant valvular abnormalities. Compared to prior study 05/12/2021 BP is now controlled. Otherwise no changes have occurred. Procedure: A two-dimensional transthoracic echocardiogram with color flow and Doppler was performed in limited views only. The study quality was technically adequate. Comparison is made with the echocardiogram of 05/12/2021. The patient was in atrial fibrillation with heart rates between 77-103 bpm during the exam. Left Ventricle: The left ventricle is normal in size. There is mild concentric left ventricular hypertrophy. The ejection fraction is estimated to be 55-60%. Diastolic function could not be accurately assessed due to atrial fibrillation. Right Ventricle: The right ventricle is normal size. Right ventricular systolic function is mild to moderately reduced. Atria: The left atrium is severely dilated. The right atrium is moderately dilated. There is no Doppler evidence for an interatrial shunt. Mitral Valve: The mitral valve leaflets are mildly calcified. There is mild mitral annular calcification. The mitral valve chordae are thickened and/or calcified. There is moderate mitral regurgitation. Aortic Valve: The aortic valve is trileaflet. The aortic valve opens well. There is no aortic valve stenosis. There is trace aortic regurgitation. Tricuspid Valve: There is moderate tricuspid regurgitation. The right ventricular systolic pressure is estimated to be at least 34 mmHg based on an estimated right atrial pressure of 8 mm Hg. Pulmonic Valve: The pulmonic valve is not well visualized. There is mild pulmonic regurgitation. Great Vessels: The aortic root is normal size. The dimensions of the ascending aorta are normal. The IVC is dilated (diameter is greater than 2.1 cm) yet it collapses greater than 50% with a sniff. This suggests a right atrial pressure of 8 mm Hg. Pericardium/ Pleura There is no pericardial effusion. There is no pleural effusion. MMode/2D Measurements & Calculations LVIDd: 4.2 cm LVOT diam: 1.8 cm LVIDs: 3.0 cm Ao root diam: 2.7 cm FS: 27.3 % asc Aorta Diam: 3.0 cm IVSd: 1.00 cm Ao Arch Diam (Prox Trans): 2.3 cm LVPWd: 1.2 cm LV sorenson. diameter/BSA (cm/m^2): 1.9 LV sys. diameter/BSA (cm/m^2): 1.3 LA A2 area: 30.8 cm2 RA long axis: 6.4 cm LA A4 area: 33.1 cm2 RA area: 26.7 cm2 LA length (vol): 7.3 cm RA vol: 94.6 ml LA vol: 118.3 ml RA : 41.8 ml/m2 LA vol index: 52.4 ml/m2 IVC diam: 2.3 cm RVD1 (basal): 3.5 cm RVD2 (mid): 2.8 cm TAPSE: 1.3 cm Doppler Measurements & Calculations Ao V2 max: 115.2 cm/sec LVOT Max Dom: 66.3 cm/sec Ao V2 mean: 79.0 cm/sec LV V1 max P.8 mmHg Ao max P.3 mmHg LV V1 VTI: 13.0 cm Ao mean P.8 mmHg NEIDA(I,D): 1.4 cm2 Ao V2 VTI: 23.0 cm NEIDA(V,D): 1.4 cm2 sev ratio: 0.57 NEIDA indexed to BSA (cm^2/m^2): 0.62 MV E max dom: 134.2 cm/sec TR max dom: 256.8 cm/sec MV A max dom: 2.3 cm/sec TR max P.4 mmHg MV E/A: 58.3 PA V2 max: 89.6 cm/sec Med Peak E' Dom: 8.0 cm/sec PA V2 mean: 63.4 cm/sec E/E' med: 16.8 PA mean P.8 mmHg Lat Peak E' Dom: 11.2 cm/sec PA pr(Accel): 32.8 mmHg E/E' lat: 12.0 E/e' average: 14.4 MV dec time: 0.17 sec MR ERO: 0.28 cm2 MR PISA: 3.1 cm2 SV(LVOT): 32.3 ml MR flow rate: 114.9 cm3/sec MR PISA radius: 0.70 cm Electronically signed by: Gisell Velasquez M.D. on Reading Physician:06/13/2022 07:08 AM
== END ==
PROVIDERS: Family Provider Internal Medicine; PCP Internal Medicine; Referring Provider Internal Medicine; Visit Provider Internal Medicine
DX: I08.1 Rheumatic disorders of both mitral and tricuspid valves (principal)
CPT/HCPCS: 93306

== ENCOUNTER → 2023-07-22 07:05 | Outpatient (CLI) | payer MEDICARE, SELFPAY ==
--- NOTE | 2023-07-22 | DI.ECHO.S_ITS ---
[place] +---------+ [facility] +---------+ : : [address] : [address] : : : : [id number] : : : : Phone: [phone] +---------+ Echocardiogram Report + + :Name: PARAG REYNOLDS Study Date: 07/22/2023 Height: 69 in : :[facility] ReadingLocation: Weight: 257 lb : : Gender: Female BSA: 2.3 m2 : :: 1945 Age: 78 yrs BP: 151/92 mmHg: :Reason For Study: Edema : :Ordering Physician: KALLIE, : :HERB Performed By: Didi Hubbard : :Referring: HERB ARREGUIN : + + Interpretation Summary Afib with controlled rate. Normal LV size and wall thickiness; low normal EF estimated at 50-55%. Moderate biatrial enlargement. Mild MR. Moderate central tricuspid regurgitation with estimated PA systolic pressure of 39 mm Hg assuming RA pressure of 10 mm Hg. Compared to prior study 06/10/2022 bp is elevated; MR is not as pronounced. Procedure: A two-dimensional transthoracic echocardiogram with color flow and Doppler was performed. The study quality was technically difficult. Comparison is made with the echocardiogram of 06/10/2022. A contrast injection of Definity was performed to improve assessment of LV function. The patient was in atrial fibrillation with heart rates between 77-113 bpm during the exam. Left Ventricle: The left ventricle is normal in size. The ejection fraction is estimated to be 55-60%. Diastolic function could not be accurately assessed due to atrial fibrillation. Right Ventricle: The right ventricle is normal size. Right ventricular systolic function is mild to moderately reduced. Atria: The left atrium is moderately dilated. The right atrium is moderately dilated. There is no Doppler evidence for an interatrial shunt. Mitral Valve: The mitral valve leaflets are slightly calcified. There is no mitral valve stenosis. There is mild mitral regurgitation. Aortic Valve: The aortic valve is trileaflet. The aortic valve opens well. There is no aortic valve stenosis. No aortic regurgitation is present. Tricuspid Valve: The tricuspid valve is normal. There is no tricuspid stenosis. There is moderate tricuspid regurgitation. Pulmonic Valve: The pulmonic valve is not well visualized. There is no pulmonic valvular stenosis. There is trace pulmonic regurgitation. Great Vessels: The aortic root is normal size. The ascending aorta is normal in size. The pulmonary artery is normal size. The inferior vena cava was not well visualized. Pericardium/ Pleura There is no pericardial effusion. There is no pleural effusion. MMode/2D Measurements & Calculations LVIDd: 4.6 cm LVOT diam: 1.6 cm LVIDs: 3.7 cm Ao root diam: 2.7 cm FS: 19.6 % asc Aorta Diam: 2.5 cm IVSd: 0.90 cm LVPWd: 1.0 cm LV sorenson. diameter/BSA (cm/m^2): 2.0 LV sys. diameter/BSA (cm/m^2): 1.6 LA A2 area: 22.5 cm2 RA long axis: 6.2 cm LA A4 area: 20.7 cm2 RA area: 23.9 cm2 LA length (vol): 6.2 cm RA vol: 78.2 ml LA vol: 64.3 ml RA : 34.0 ml/m2 LA vol index: 28.0 ml/m2 RVD1 (basal): 3.8 cm LVLs ap4: 6.0 cm LVLd ap2: 7.5 cm TAPSE_phl: 1.6 cm LVLs ap2: 6.5 cm Doppler Measurements & Calculations Ao V2 max: 104.0 cm/sec LVOT Max Dom: 61.5 cm/sec Ao V2 mean: 73.0 cm/sec LV V1 max P.5 mmHg Ao max P.0 mmHg LV V1 VTI: 11.7 cm Ao mean P.0 mmHg NEIDA(I,D): 1.1 cm2 Ao V2 VTI: 22.2 cm NEIDA(V,D): 1.2 cm2 sev ratio: 0.53 NEIDA indexed to BSA (cm^2/m^2): 0.46 TR max dom: 259.7 cm/sec SV(LVOT): 23.5 ml TR max P.0 mmHg PA V2 max: 91.6 cm/sec PA V2 mean: 61.1 cm/sec PA mean P.0 mmHg PA pr(Accel): 54.3 mmHg AV VR_phl: 0.59 NEIDA(VTI)/BSA_phl: 0.46 Electronically signed by: Amalia Kelly M.D. on Reading Physician:07/23/2023 02:47 PM
== END ==
PROVIDERS: Family Provider Internal Medicine; PCP Internal Medicine; Referring Provider Internal Medicine Gastroenterology; Visit Provider Internal Medicine Gastroenterology
DX: I50.42 Chronic combined systolic (congestive) and diastolic (congestive) heart failure (principal); I08.1 Rheumatic disorders of both mitral and tricuspid valves
CPT/HCPCS: 93306; Q9957

== ENCOUNTER → 2023-11-15 13:42 | Outpatient (CLI) | payer MEDICARE, SELFPAY ==
--- NOTE | 2023-11-15 13:44 | DI.CT.S_ITS ---
PROCEDURE: CT CHEST HIGH RESOLUTION INDICATIONS: Crackles, eval for interstitial lung disease TECHNIQUE: Noncontrast 1.0 and 5.0 mm thick contiguous axial sections from the pulmonary apex to the posterior costophrenic angles, with 7 mm thick coronal and sagittal MIP reformats. 1 mm thick dynamic expiratory images acquired through the upper, mid, and lower lungs. 1.0 mm thick axial sections acquired from the camryn to the posterior costophrenic angles in the prone end-inspiration position. For radiation dose reduction, the following was used: automated exposure control, adjustment of mA and/or kV according to patient size. COMPARISON: None. FINDINGS: Image quality: Suboptimal due to motion artifact. Lower Neck: No enlarged lymph nodes. Thyroid: No thyroid nodules which require sonographic follow up, per consensus guidelines. Axillae: No enlarged lymph nodes. Chest Wall: Unremarkable. Bones: Unremarkable. Lungs and Pleura: No pneumothorax or pleural effusions. Mild air trapping. Scattered solid pulmonary nodules measuring less than 6 mm. For example, the 4 mm solid nodule in the right upper lobe (series 2, image 72), and the 3 mm solid nodule in the medial right lower lobe (series 2, image 27). Heart: Heart size is enlarged, with three-vessel coronary calcifications. No pericardial effusion. Thoracic Vessels: The aorta and pulmonary arteries demonstrate normal size. Mediastinum and [place]: No enlarged lymph nodes. Esophagus: No wall thickening. No hiatal hernia. Upper Abdomen: Visualized upper abdomen solid organs and bowel loops appear normal. IMPRESSION: Mild diffuse air trapping, which may indicate hypersensitivity pneumonitis or small airways disease. Scattered solid pulmonary micro nodules. Consider 12 month follow-up if at high risk for developing lung cancer, per Fleischner Society guidelines. Approved by: Chance Nina M.D. on 11/15/2023 at 15:47
== END ==
LOC: CT 13:44
PROVIDERS: Family Provider Internal Medicine; PCP Internal Medicine; Referring Provider Internal Medicine Critical Care Medicine; Visit Provider Internal Medicine Critical Care Medicine
DX: J98.11 Atelectasis (principal); R91.8 Other nonspecific abnormal finding of lung field; I51.7 Cardiomegaly; I25.10 Atherosclerotic heart disease of native coronary artery without angina pectoris
CPT/HCPCS: 71250

== ENCOUNTER → 2023-11-18 13:26 | Outpatient (CLI) | payer MEDICARE, SELFPAY | LOC: RESP 13:27 | PROVIDERS: Family Provider Internal Medicine; PCP Internal Medicine; Referring Provider Internal Medicine Critical Care Medicine; Visit Provider Internal Medicine Critical Care Medicine | DX: R06.09 Other forms of dyspnea (principal); J98.8 Other specified respiratory disorders | CPT/HCPCS: 94060; 94726; 94729 ==